=== PATIENT | male | born 1935 | race Caucasian/White ===

== ENCOUNTER 2020-06-18 17:59 | Observation (INO) ==
--- OUTSIDE RECORDS SUMMARY | 2020-06-18 18:02 | External Medical Summary | Continuity of Care Document ---
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
--- NOTE | 2020-06-18 19:11 | Emergency Department Note ---
Impression & Plan Hemianopsia, Occipital cerebral infarction, Cerebellar infarct ED Provider Note NAME: JUAN DIEGO HOFFMAN AGE: 84 SEX: M : 1935 ARRIVES VIA: Walk-In INFORMANT: Patient, ED PROVIDER(S): Rocco Shankar MD Chief Complaint: Vision change HPI: Patient does present with concern for vision changes. The patient states that this began about 2 weeks ago he did see a doctor annie who is an eye doctor in [place]. The patient was told to return in 2 weeks time. The patient did not have improvement in symptoms and the patient did relate was referred here after being seen by the eye doctor around 2:15 PM. Patient denies any headache fevers or chills. 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 Patient denies any numbness tingling weakness. The patient denies any double vision but relates that the vision is primarily what he thought was at the right eye and the periphery on the right side and noticed some changes in color and that images almost had a "glazed" appearance. Patient denies any curtain coming down or double vision. Patient denies any slurred speech or confusion. Patient denies any recent falls. Patient denies any prior history of stroke. The patient did have a dilated eye exam completed today. Patient denies any eye pain. ROS: See HPI for pertinent positives and negatives. A total of 10 systems were reviewed and otherwise negative. Past medical history: See below Surgical history: See below Social history: See below Physical Exam: GENERAL: Well appearing, well nourished, NAD, non-toxic. EYE EXAM: Normal conjunctiva. PERRL, no anisocoria and EOM's grossly intact w/o pain. Patient does have slightly right greater than left anisocoria but with consensual light reflex. No APD. No obvious hyphema or hypopyon. Patient does have decreased vision of the right and left eye when looking straight ahead at his 4 o'clock position bilaterally. No proptosis or subconjunctival hemorrhage. NECK: Supple, no nuchal rigidity, no adenopathy, non-tender. No signs of meningismus. LUNGS: Clear to auscultation. Normal chest wall mechanics. HEART: NSR, no MRG. ABDOMEN: Abdomen soft, non-tender, normo-active bowel sounds, no masses, no rebound or guarding. BACK: No CVA TTP. SKIN: No rashes and no bruising. UPPER EXTREMITIES: Upper extremities are grossly normal. LOWER EXTREMITIES: Grossly normal, no edema. NEURO EXAM: A&O x3, cranial nerves II-XII grossly intact, normal speech, moves all 4 extremities on command w/o issue. Good finger to nose, no drift, no sensory deficits. Differential diagnoses: Infection, dehydration, metabolic abnormality, hypo/hyperglycemia, electrolyte disturbance, anemia, hypoxia, cardiac sources, intracerebral event, toxicologic, neurologic, as well as other pathologies. Course: Patient was seen and evaluated the bedside. Full history physical exam was performed. EKG: Indication: Vision changes Normal sinus rhythm, rate of 61, normal intervals, normal axis, T wave inversion in 2 and 3, no ST changes. No significant changes from comparison EKG December 06, 2012 for Imaging Studies: Radiology results as stated below per my review in the radiologist's interpretation: UNENHANCED CT OF THE BRAIN; CT ANGIOGRAM OF THE BRAIN; CT ANGIOGRAM OF THE NECK CLINICAL HISTORY: Peripheral vision loss. COMPARISON STUDY: No priors. TECHNIQUE: Unenhanced axial CT scan of the brain is performed. Subsequently, following the IV administration of 115 of Optiray 320, CT angiogram of the head and neck was performed from the aortic arch to the vertex. Images are reviewed in the axial, sagittal, and coronal planes. 3-D MIPS images are created and assessed. IV contrast was administered without complication. All measurements were calculated based on NASCET criteria. A dose lowering technique was utilized adhering to the principles of ALARA. CT DOSE: 1073.51 mGy.cm FINDINGS: Brain parenchyma: There is age-related involutional change noting mild subc ortical and periventricular microangiopathic disease. There is no hemorrhage, mass effect, or evidence of acute territorial ischemia by CT criteria. A chronic appearing lacunar infarct is noted in the left cerebellar hemisphere. There is no evidence of enhancing mass lesion on the angiogram phase images. The ventricles, sulci, and cisterns are prominent secondary to involutional change. Pagan-white matter differentiation is preserved. No extra-axial fluid collection is seen. Mineralization is noted in the basal ganglia. Thoracic aorta: Visualized portions of the thoracic aorta are normal in caliber. The aortic arch demonstrates standard 3-vessel anatomy. Right carotid arterial system: The right common carotid artery is widely patent, as are the right internal and external carotid arteries. Left carotid arterial system: The left common carotid artery is widely patent, as are the left internal and external carotid arteries. Mild plaque is seen in the carotid bulb. Vertebral arteries: The vertebral arteries are widely patent and codominant. Subclavian arteries: Widely patent bilaterally. Intracranial vasculature: There is atherosclerotic calcification of the cavernous carotid and vertebral arteries. The internal carotid arteries are patent at the skull base, as are the anterior and middle cerebral arteries bilaterally. The right A1 segment is atretic. The vertebrobasilar system and posterior cerebral arteries are widely patent. The vertebral arteries are codominant. There is no aneurysm, high-grade stenosis, or focal vessel cut off seen throughout the intracranial circulation. Jugular veins: Patent bilaterally. Dural sinuses: Patent. Lung apices: Partially visualized upper lobe lung parenchyma appears clear. Soft tissues: The visualized pharyngeal soft tissues are normal in appearance noting angiographic phase technique. The oropharyngeal airway appears widely p atent. The salivary and thyroid glands are normal in appearance. No cervical lymphadenopathy is seen. Skeletal structures: The skeletal structures are osteopenic. The calvarium appears intact. The cervical spine is maintained noting advanced multilevel spondylosis. No lytic or blastic lesion is seen. Orbits: The bony orbits are intact. Orbital contents are normal as imaged noting bilateral ocular lens implants. Sinuses and mastoids: Moderate mucosal thickening is similar left maxillary antrum. Mild mucosal thickening is seen on the right. Moderate mucosal thickening is seen within the ethmoid sinuses. Mild mucosal thickening is noted in the frontal and sphenoid sinuses. The mastoid air cells are well pneumatized. IMPRESSION: 1. There is no hemorrhage, mass effect, or evidence of acute territorial ischemia by CT criteria. 2. A chronic appearing lacunar infarct is noted in the left cerebellar hemisphere. 3. Unremarkable CT angiogram of the brain. 4. Unremarkable CT angiogram of the neck. 5. Paranasal sinus disease as above. ACT 112: Negative or not required by law. Electronically signed by: Sergio Anderson M.D. 06/18/2020 9:12 PM Dictated: 06/18/202099 Transcribed: 06/18/202099 MRI brain without contrast: Impression: No evidence of acute infarction. 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 Chronic microvascular changes. No mass lesion mass-effect or hydrocephalus. Cardiac monitoring: An order was placed for continuous cardiac monitoring. The monitor shows a rate of 66 with sinus rhythm. MDM: Patient does present with concern for changes in vision. Patient bloodwork completed which shows a normal white count H&H and platelet count. Patient's kidney function CKD stage III. Troponin is nondetectable. EKG is unremarkable. CT of the head and CT angiography's of the head and neck do show chronic infarct. Patient did have an MRI of the brain ordered was ordered a full dose aspirin I did speak with the on-call hospitalist Dr. Winters and the patient was admitted to the medicine service. Patient's MRI of the brain did not show any evidence of acute infarction but chronic left occipital and superior cerebellar infarctions. Patient was never a TPA candidate given that he had 2 weeks of symptoms. Past Med/Surg History Medical History Colon cancer H/O: HTN (hypertension) Prostate cancer Family History Other No pertinent family history Social History Smoking Status: Never smoker Hx Alcohol Use: Yes Hx Substance Use: No Allergies Allergies Allergy/AdvReac Type Severity Reaction Status Date / Time No Known Allergies Allergy Unknown Verified 06/18/20 22:53 Home Meds Home Medications Medication Instructions Recorded Confirmed amlodipine 2.5 mg PO DAILY 06/18/20 06/18/20 Results & Data (ED) Vital Signs Vital Signs - 24 hr 06/18/20 18:06 06/18/20 19:36 06/18/20 20:55 Temperature 36.6 C Temperature Source Oral Pulse Rate 66 Pulse Rate [Left] 59 L 64 Respiratory Rate 18 20 18 Respiratory Effort / Characteristics Non-Labored Spontaneous Non-Labored Spontaneous Respiratory Depth Normal Normal Blood Pressure 151/41 H Blood Pressure [Left Arm] 151/71 H 159/68 H Blood Pressure Mean 77 Blood Pressure Mean [Left Arm] 97 98 Blood Pressure Position [Left Arm] Lying Pulse Oximetry 97 97 98 Oxygen Delivery Method Room Air Room Air Room Air Sepsis Recent Fever Within 48 Hours No Sepsis New/Unexplained Change in Mental Status No Sepsis Action Taken by Nursing No Action Required 11/23/20 21:43 Temperature Temperature Source Pulse Rate Pulse Rate [Left] 85 Respiratory Rate 18 Respiratory Effort / Characteristics Respiratory Depth Blood Pressure Blood Pressure [Left Arm] 129/89 Blood Pressure Mean Blood Pressure Mean [Left Arm] 102 Blood Pressure Position [Left Arm] Pulse Oximetry 97 Oxygen Delivery Method Sepsis Recent Fever Within 48 Hours Sepsis New/Unexplained Change in Mental Status Sepsis Action Taken by Usp Medications Current Medication List: was personally reviewed by me Laboratory Data Attestation: I reviewed the patient's lab results. Result diagrams: 06/18/20 19:40 06/18/20 19:40 Lab Results 06/18/20 06/18/20 06/18/20 Range/Units 19:40 19:40 19:40 WBC 10.30 (4.8-10.8) K/uL RBC 4.67 L (4.7-6.1) M/uL Hgb 15.1 (14.0-18.0) g/dL Hct 46.0 (42-52) % MCV 98.5 (80-100) fL MCH 32.3 (25-34) pg MCHC 32.8 (32-36) g/dL RDW Std Deviation 52.7 H (36.4-46.3) fL RDW Coeff of Rolan 14.7 H (11.5-14.5) % Plt Count 313 (130-400) K/uL MPV 10.8 H (7.4-10.4) fL Immature Gran % (Auto) 0.1 % Neut % (Auto) 69.8 % Lymph % (Auto) 19.2 % Beckham % (Auto) 7.4 % Eos % (Auto) 3.2 % Baso % (Auto) 0.3 % Neut # (Auto) 7.19 H (1.4-6.5) K/uL Lymph # (Auto) 1.98 (1.2-3.4) K/uL Beckham # (Auto) 0.76 H (0.11-0.59) K/uL Eos # (Auto) 0.33 (0-0.5) K/uL Baso # (Auto) 0.03 (0-0.2) K/uL Immature Gran # (Auto) 0.01 (0.00-0.02) K/uL PT 10.7 (9.0-12.0) Seconds INR 1.0 (0.9-1.1) APTT 24.1 (21.0-31.0) Seconds PTT Ratio 0.9 Sodium 141 (136-145) mmol/L Potassium 4.5 (3.5-5.1) mmol/L Chloride 110 H (98-107) mmol/L Carbon Dioxide 26 (21-32) mmol/L Anion Gap 5.0 (3-11) BUN 22 H (7-18) mg/dl Creatinine 1.43 H (0.6-1.4) mg/dl Est Cr Clr Drug Dosing 39.2 ml/min Est GFR ( Amer) 52.5 Est GFR (Non-Af Amer) 45.3 BUN/Creatinine Ratio 15.2 (10-20) Glucose 97 (70-99) mg/dl Calcium 9.4 (8.5-10.1) mg/dl Magnesium 2.1 (1.8-2.4) mg/dl Total Bilirubin 0.3 (0.2-1) mg/dl AST 20 (15-37) U/L ALT 23 (12-78) U/L Alkaline Phosphatase 107 (45-117) U/L Troponin I < 0.015 (0-0.045) ng/ml Total Protein 7.7 (6.4-8.2) gm/dl Albumin 3.4 (3.4-5.0) gm/dl Globulin 4.3 H (2.5-4.0) gm/dl Albumin/Globulin Ratio 0.8 L (0.9-2) TSH 2.840 (0.300-4.500) uIu/ml Administered Medications Discontinued Medications Aspirin (Aspirin Chew 324 Mg) 324 mg PO NOW STA Stop: 06/18/20 21:18 Last Admin: 06/18/20 21:43 Dose: 324 mg Documented by: [id number] Ioversol (Optiray 320 125ml) 115 ml IV ONCE ONE Stop: 06/18/20 20:49 Last Admin: 06/18/20 20:48 Dose: 115 ml Documented by: [id number] Discharge Plan Visit Data Chief Complaint: Visual Disturbance Stated Complaint: HEADACHE, CANT SEE ED Provider: Rocco Shankar Discharge Problem: Hemianopsia, Occipital cerebral infarction, Cerebellar infarct Forms Stand Alone Forms: My [facility] [employer] Prescriptions Prescriptions: No Action amlodipine 2.5 mg tablet 2.5 mg PO DAILY RF: 0
[2020-06-18 19:54] LABS: Basophils # (auto) 0.03 K/uL (0-0.2); Basophils % (auto) 0.3 %; Eosinophils # (auto) 0.33 K/uL (0-0.5); Eosinophils % (auto) 3.2 %; Hemoglobin 15.1 g/dL (14.0-18.0); Immature Granulocytes # (auto) 0.01 K/uL (0.00-0.02); Immature Granulocytes % (auto) 0.1 %; Lymphocytes # (auto) 1.98 K/uL (1.2-3.4); Lymphocytes % (auto) 19.2 %; Mean Corpuscular Hemoglobin 32.3 pg (25-34); Mean Corpuscular Hgb Conc 32.8 g/dL (32-36); Mean Corpuscular Volume 98.5 fL (80-100); Mean Platelet Volume 10.8 fL (7.4-10.4); Monocytes # (auto) 0.76 K/uL (0.11-0.59); Monocytes % (auto) 7.4 %; Neutrophils # (auto) 7.19 K/uL (1.4-6.5); Neutrophils % (auto) 69.8 %; Platelet Count 313 K/uL (130-400); RDW Coefficient of Variation 14.7 % (11.5-14.5); RDW Standard Deviation 52.7 fL (36.4-46.3); Red Blood Count 4.67 M/uL (4.7-6.1)
[2020-06-18 20:05] LABS: Partial Thromboplastin Ratio 0.9; Partial Thromboplastin Time 24.1 Seconds (21.0-31.0); Prothrombin Time 10.7 Seconds (9.0-12.0)
[2020-06-18 20:10] LABS: Alanine Aminotransferase 23 U/L (12-78); Albumin Level 3.4 gm/dl (3.4-5.0); Aspartate Aminotransferase 20 U/L (15-37); BUN Creatinine Ratio 15.2 (10-20); Blood Urea Nitrogen 22 mg/dl (7-18); Calcium 9.4 mg/dl (8.5-10.1); Carbon Dioxide 26 mmol/L (21-32); Chloride 110 mmol/L (98-107); Creatinine Clr Calc Pharmacy 39.2 ml/min; Est GFR (African American) 52.5; Est GFR (Non-African American) 45.3; Glucose 97 mg/dl (70-99); Magnesium 2.1 mg/dl (1.8-2.4); Potassium 4.5 mmol/L (3.5-5.1); Sodium 141 mmol/L (136-145)
[2020-06-18 20:15] LABS: Albumin Globulin Ratio 0.8 (0.9-2); Alkaline Phosphatase 107 U/L (45-117); Bilirubin,Total 0.3 mg/dl (0.2-1); Globulin 4.3 gm/dl (2.5-4.0); Total Protein 7.7 gm/dl (6.4-8.2); Troponin I < 0.015 ng/ml (0-0.045)
[2020-06-18] MEDS ORDERED: OPTIRAY 320 125ml IV ONE (20:48)
--- NOTE | 2020-06-18 21:13 | CT Scan Report ---
UNENHANCED CT OF THE BRAIN; CT ANGIOGRAM OF THE BRAIN; CT ANGIOGRAM OF THE NECK CLINICAL HISTORY: Peripheral vision loss. COMPARISON STUDY: No priors. TECHNIQUE: Unenhanced axial CT scan of the brain is performed. Subsequently, following the IV adminis tration of 115 of Optiray 320, CT angiogram of the head and neck was performed from the aortic arch t o the vertex. Images are reviewed in the axial, sagittal, and coronal planes. 3-D MIPS images are cre ated and assessed. IV contrast was administered without complication. All measurements were calculate d based on NASCET criteria. A dose lowering technique was utilized adhering to the principles of ALA RA. CT DOSE: 1073.51 mGy.cm FINDINGS: Brain parenchyma: There is age-related involutional change noting mild subcortical and periventricula r microangiopathic disease. There is no hemorrhage, mass effect, or evidence of acute territorial isc hemia by CT criteria. A chronic appearing lacunar infarct is noted in the left cerebellar hemisphere. There is no evidence of enhancing mass lesion on the angiogram phase images. The ventricles, sulci, and cisterns are prominent secondary to involutional change. Pagan-white matter differentiation is pre served. No extra-axial fluid collection is seen. Mineralization is noted in the basal ganglia. Thoracic aorta: Visualized portions of the thoracic aorta are normal in caliber. The aortic arch demo nstrates standard 3-vessel anatomy. Right carotid arterial system: The right common carotid artery is widely patent, as are the right int ernal and external carotid arteries. Left carotid arterial system: The left common carotid artery is widely patent, as are the left international accountant al and external carotid arteries. Mild plaque is seen in the carotid bulb. Vertebral arteries: The vertebral arteries are widely patent and codominant. Subclavian arteries: Widely patent bilaterally. Intracranial vasculature: There is atherosclerotic calcification of the cavernous carotid and vertebr al arteries. The internal carotid arteries are patent at the skull base, as are the anterior and midd le cerebral arteries bilaterally. The right A1 segment is atretic. The vertebrobasilar system and pos terior cerebral arteries are widely patent. The vertebral arteries are codominant. There is no aneury sm, high-grade stenosis, or focal vessel cut off seen throughout the intracranial circulation. Jugular veins: Patent bilaterally. Dural sinuses: Patent. Lung apices: Partially visualized upper lobe lung parenchyma appears clear. Soft tissues: The visualized pharyngeal soft tissues are normal in appearance noting angiographic pha se technique. The oropharyngeal airway appears widely patent. The salivary and thyroid glands are nor mal in appearance. No cervical lymphadenopathy is seen. Skeletal structures: The skeletal structures are osteopenic. The calvarium appears intact. The cervic al spine is maintained noting advanced multilevel spondylosis. No lytic or blastic lesion is seen. Orbits: The bony orbits are intact. Orbital contents are normal as imaged noting bilateral ocular michael s implants. Sinuses and mastoids: Moderate mucosal thickening is similar left maxillary antrum. Mild mucosal thic kening is seen on the right. Moderate mucosal thickening is seen within the ethmoid sinuses. Mild muc osal thickening is noted in the frontal and sphenoid sinuses. The mastoid air cells are well pneumati zed. IMPRESSION: 1. There is no hemorrhage, mass effect, or evidence of acute territorial ischemia by CT criteria. 2. A chronic appearing lacunar infarct is noted in the left cerebellar hemisphere. 3. Unremarkable CT angiogram of the brain. 4. Unremarkable CT angiogram of the neck. 5. Paranasal sinus disease as above. ACT 112: Negative or not required by law. Electronically signed by: Sergio Anderson M.D. 06/18/2020 9:12 PM
[2020-06-18] MEDS ORDERED: ASPIRIN CHEW 324 MG PO STA (21:17)
--- NOTE | 2020-06-18 23:14 | History & Physical Report ---
Date of Service June 18, 2020 Assessment & Plan (1) Hemianopsia: Visual disturbance Old CVA on CAT scan Rule out recurrent CVA, subacute symptoms given occurrence from 2 weeks ago Hypertension, slightly elevated Hyperlipidemia as per records, currently not on statin Rx colon cancer status post surgery/chemoradiation prostate cancer status post surgery/hormonal therapy CRI, creatinine at baseline hx peripheral neuropathy attributed to prior chemotherapy medication past tobacco abuse OBS Neurochecks Aspirin, statin for secondary CVA prevention MRI brain TTE, update lipid profile for stroke work-up Retrieve recent outpatient [facility] records. Neurology consult RE visual disturbance, possible CVA DVT prophylaxis. Heparin subcu DNR Text document was generated using [employer] voice recognition software. It may contain grammatical or spelling errors. Kindly contact undersigned for clarification of any documentation item in question. History of Present Illness Chief Complaint: Sent by eye doctor Primary Care Provider: Dafne Hernandez DO History obtained from patient and records. Medical history significant for HTN, PAD as per records, hyperlipidemia as per records, colon cancer status post surgery/chemoradiation, prostate cancer status post surgery/hormonal therapy, CRI (baseline creatinine 1.4), peripheral neuropathy as per records, past tobacco abuse. Last confinement 2012 under Orthopedics service for left hand surgery. 2 weeks ago, patient noted visual disturbance on his right eye with transient tolerable headache symptoms. Patient seen glazed images. No recent head/neck trauma. No arm and leg weakness, no slurred speech. No chest pain, no S OB. Patient saw an detective private eye from [facility] in [place]. Diagnosis unknown to patient but patient was asked to return after 2 weeks. Persistent visual disturbance without headache symptoms on follow-up at [facility] today. On examination, patient was told he had trouble seeing on sides of both eyes. Patient sent to the ER for evaluation of possible stroke. Aspirin given at the ER for possible CVA. Medical History as above Surgical History : Knee surgery, transanal resection surgery, vascular procedure, urologic procedure Family History : Diabetes Personal/Social history : Past tobacco abuse, occasional EtOH intake, retired cigar factory employee Allergies Allergy/AdvReac Type Severity Reaction Status Date / Time No Known Allergies Allergy Unknown Verified 06/18/20 22:53 Home Medications Medication Instructions Recorded Confirmed Type amlodipine 2.5 mg PO DAILY 06/18/20 06/18/20 History Past Med/Surg History Medical History Colon cancer H/O: HTN (hypertension) Prostate cancer Family History Other No pertinent family history Social History Smoking Status: Former smoker Second Hand Exposure: No; Do You Dip or Chew Tobacco: No; Tobacco Cessation Education Requested by Patient: No Hx Alcohol Use: Yes Alcohol type: beer Hx Substance Use: No Preferred Language: Kazakh Beliefs That Will Affect Care: None Current Living Situation: Alone Other Information That Helps Us Care for You: No Feels Safe at Home: Yes Safety Concerns: Feels Safe At This Time Assistive Devices: Cane and Glasses Review of Systems Review of Systems: As per HPI, all 10 systems reviewed, all other ROS negative Physical Exam Physical Exam: GENERAL: Comfortable, pleasant, looks younger than stated age, no respiratory distress SKIN: Normal color, warm HEENT: [place] palpebral conjunctivae, no ptosis, dry buccal mucosa NECK : Supple, no tenderness CHEST : CTA, no tenderness HEART : Bradycardic, no obvious murmurs ABDOMEN: Some distention, nontender EXTREMITIES : No LE swelling/tenderness, no other conspicuous deformities noted NEUROLOGIC : Coherent, some difficulty with counting fingers on [facility] testing of the right eye, no facial asymmetry, no other gross focality Results & Data Results & Data ([facility]) Vital Signs (Past 12 Hours) Vital Signs Temp Pulse Pulse Resp BP BP Pulse Ox 06/18/20 21:43 85 18 129/89 97 06/18/20 20:55 64 18 159/68 H 98 06/18/20 19:36 59 L 20 151/71 H 97 06/18/20 18:06 36.6 C 66 18 151/41 H 97 Laboratory Results Laboratory Results WBC 10.30 K/uL (4.8-10.8) 06/18/20 19:40 RBC 4.67 M/uL (4.7-6.1) L 06/18/20 19:40 Hgb 15.1 g/dL (14.0-18.0) 06/18/20 19:40 Hct 46.0 % (42-52) 06/18/20 19:40 MCV 98.5 fL (80-100) 06/18/20 19:40 MCH 32.3 pg (25-34) 06/18/20 19:40 MCHC 32.8 g/dL (32-36) 06/18/20 19:40 RDW Std Deviation 52.7 fL (36.4-46.3) H 06/18/20 19:40 RDW Coeff of Rolan 14.7 % (11.5-14.5) H 06/18/20 19:40 Plt Count 313 K/uL (130-400) 06/18/20 19:40 MPV 10.8 fL (7.4-10.4) H 06/18/20 19:40 Immature Gran % (Auto) 0.1 % 06/18/20 19:40 Neut % (Auto) 69.8 % 06/18/20 19:40 Lymph % (Auto) 19.2 % 06/18/20 19:40 [place] % (Auto) 7.4 % 06/18/20 19:40 Eos % (Auto) 3.2 % 06/18/20 19:40 Baso % (Auto) 0.3 % 06/18/20 19:40 Neut # (Auto) 7.19 K/uL (1.4-6.5) H 06/18/20 19:40 Lymph # (Auto) 1.98 K/uL (1.2-3.4) 06/18/20 19:40 [place] # (Auto) 0.76 K/uL (0.11-0.59) H 06/18/20 19:40 Eos # (Auto) 0.33 K/uL (0-0.5) 06/18/20 19:40 Baso # (Auto) 0.03 K/uL (0-0.2) 06/18/20 19:40 Immature Gran # (Auto) 0.01 K/uL (0.00-0.02) 06/18/20 19:40 PT 10.7 Seconds (9.0-12.0) 06/18/20 19:40 INR 1.0 (0.9-1.1) 06/18/20 19:40 APTT 24.1 Seconds (21.0-31.0) 06/18/20 19:40 PTT Ratio 0.9 06/18/20 19:40 Sodium 141 mmol/L (136-145) 06/18/20 19:40 Potassium 4.5 mmol/L (3.5-5.1) 06/18/20 19:40 Chloride 110 mmol/L (98-107) H 06/18/20 19:40 Carbon Dioxide 26 mmol/L (21-32) 06/18/20 19:40 Anion Gap 5.0 (3-11) 06/18/20 19:40 BUN 22 mg/dl (7-18) H 06/18/20 19:40 Creatinine 1.43 mg/dl (0.6-1.4) H 06/18/20 19:40 Est Cr Clr Drug Dosing 39.2 ml/min 06/18/20 19:40 Est GFR ( Amer) 52.5 06/18/20 19:40 Est GFR (Non-Af Amer) 45.3 06/18/20 19:40 BUN/Creatinine Ratio 15.2 (10-20) 06/18/20 19:40 Glucose 97 mg/dl (70-99) 06/18/20 19:40 Calcium 9.4 mg/dl (8.5-10.1) 06/18/20 19:40 Magnesium 2.1 mg/dl (1.8-2.4) 06/18/20 19:40 Total Bilirubin 0.3 mg/dl (0.2-1) 06/18/20 19:40 AST 20 U/L (15-37) 06/18/20 19:40 ALT 23 U/L (12-78) 06/18/20 19:40 Alkaline Phosphatase 107 U/L (45-117) 06/18/20 19:40 Troponin I < 0.015 ng/ml (0-0.045) 06/18/20 19:40 Total Protein 7.7 gm/dl (6.4-8.2) 06/18/20 19:40 Albumin 3.4 gm/dl (3.4-5.0) 06/18/20 19:40 Globulin 4.3 gm/dl (2.5-4.0) H 06/18/20 19:40 Albumin/Globulin Ratio 0.8 (0.9-2) L 06/18/20 19:40 TSH 2.840 uIu/ml (0.300-4.500) 06/18/20 19:[address] head: 1. There is no hemorrhage, mass effect, or evidence of acute territorial ischemia by CT criteria. 2. A chronic appearing lacunar infarct is noted in the left cerebellar hemisphere. 3. Unremarkable CT angiogram of the brain. 4. Unremarkable CT angiogram of the neck. 5. Paranasal sinus disease as above. CT angio head and neck: 1. There is no hemorrhage, mass effect, or evidence of acute territorial ischemia by CT criteria. 2. A chronic appearing lacunar infarct is noted in the left cerebellar hemisphere. 3. Unremarkable CT angiogram of the brain. 4. Unremarkable CT angiogram of the neck. 5. Paranasal sinus disease as above. EKG as per my interpretation: Rate 60, LAD, LAFB, T wave flattening anterolateral leads
[2020-06-18] MEDS ORDERED: SODIUM CHLORIDE 0.45 % 1,000 ML IV STA (23:31)
[2020-06-19] MEDS ORDERED: traMADol HCL 50 MG TABLET PO PRN (02:27)
[2020-06-19] MEDS ORDERED: HYDROmorphone INJ 0.5 MG/0.5 ML SYR IV PRN (02:27)
[2020-06-19] MEDS ORDERED: PROMETHAZINE HCL 6.25 MG in SODIUM CHLORIDE 0.9% 50 ML IV PRN (02:27)
[2020-06-19] MEDS ORDERED: ACETAMINOPHEN 325 MG TAB PO PRN (02:27)
[2020-06-19] MEDS: HEPARIN SOD 5,000 UNIT/0.5 ML VIAL SQ SCH ×3 (06:32→20:55)
--- NOTE | 2020-06-19 07:07 | Magnetic Resonance Report ---
MRI OF THE BRAIN WITHOUT CONTRAST CLINICAL HISTORY: b/l R sided hemaniopsia VISUAL DISTURBANCES. PERIPHERAL VISUAL FIELD LOSS. COMPARISON STUDY: Noncontrast head CT dated 06/18/2020 FINDINGS: Sagittal T1, axial diffusion, proton density and T2 weighted axial, coronal FLAIR, and axial T1-weigh aditya images were acquired. No intra or extra-axial mass lesions are visualized Axial diffusion-weighted images reveal no evidence of acute or subacute infarction. There is no evidence of ventricular dilatation. 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 There are scattered foci of increased T2 and FLAIR signal within the white matter, likely on a small vessel ischemic basis. There are no abnormal flow voids. There is paranasal sinus mucosal thickening. There is a cystic lesion within the right nasopharynx. IMPRESSION: 1. No evidence of intracranial mass 2. No evidence of acute or subacute infarction 3. Evidence for areas of chronic infarction involving the left occipital lobe and left superior cereb ellar hemisphere 4. 1 cm cystic lesion within the right nasopharynx ACT 112: Negative or not required by law. Electronically signed by: Dean Jiménez M.D. 06/19/2020 7:06 AM
--- NOTE | 2020-06-19 07:30 | Hospitalist Progress Note ---
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 No evidence of intracranial mass 2. No evidence of acute or subacute infarction 3. Evidence for areas of chronic infarction involving the left occipital lobe and left superior cerebellar hemisphere 4. 1 cm cystic lesion within the right nasopharynx -transthoracic echocardiogram 60-65% no Atrial Septal Defect noted -pt evaluated by ophthalmology for peripheral vision loss, sent to ED for concern of CVA -pt started on ASA and statin on admission -fasting LDL ordered -discussed in detail that pt can not drive - pt is aware -neurology evaluation pending Admission and Anticipated Discharge Date Admission Date: June 18, 2020 Subjective Pt seen in follow up of visual disturbance, possible stroke. Pt is laying in bed in NAD. Reports he has been ambulating w/o difficulty. No difficulty w/ speech. Reports visual difficulties - peripheral vision. He is aware he can not drive. No fever, chills, chest pain, no weakness. Review of Systems Review of Systems: All systems reviewed & are unremarkable except as noted in HPI & below Constitutional: no fever and no chills Respiratory: no cough and no dyspnea Cardiovascular: no chest pain and no palpitations Gastrointestinal: no abdominal pain, no nausea and no vomiting Physical Exam Physical Exam: GENERAL: elderly male laying in bed, comfortable, in NAD SKIN: Normal color, warm HEENT: [place], [place] palpebral conjunctivae, no ptosis NECK : Supple, no tenderness CHEST : CTA, no tenderness, no wheezing, rhonchi, crackles HEART : RRR, no obvious murmurs ABDOMEN: + bowel sounds, some distention, nontender, soft, obese EXTREMITIES : No LE swelling/tenderness, NEUROLOGIC : alert and oriented x3, no facial asymmetry, speech fluent, peripheral vision deficit noted, moves extremities, no sign. weakness noted Results & Data Results [facility] ([facility]) Vital Signs (Past 12 Hours) Vital Signs Temp Pulse Pulse Resp BP Pulse Ox 06/19/20 03:06 56 L 06/19/20 02:47 36.5 C 96 H 18 165/73 H 96 06/19/20 02:04 49 L 16 140/67 94 06/19/20 01:18 52 L 21 93/77 L 95 06/18/20 23:40 58 L 18 128/76 95 06/18/20 21:43 85 18 129/89 97 06/18/20 20:55 64 18 159/68 H 98 06/18/20 19:36 59 L 20 151/71 H 97
[2020-06-19 08:32] LABS: Basophils # (auto) 0.04 K/uL (0-0.2); Basophils % (auto) 0.4 %; Eosinophils # (auto) 0.49 K/uL (0-0.5); Hematocrit (blood only) 45.4 % (42-52); Hemoglobin 14.9 g/dL (14.0-18.0); Immature Granulocytes # (auto) 0.01 K/uL (0.00-0.02); Immature Granulocytes % (auto) 0.1 %; Lymphocytes % (auto) 23.6 %; Mean Corpuscular Hemoglobin 32.5 pg (25-34); Mean Corpuscular Hgb Conc 32.8 g/dL (32-36); Mean Corpuscular Volume 99.1 fL (80-100); Mean Platelet Volume 11.1 fL (7.4-10.4); Monocytes # (auto) 0.75 K/uL (0.11-0.59); Monocytes % (auto) 7.7 %; Neutrophils # (auto) 6.16 K/uL (1.4-6.5); Neutrophils % (auto) 63.2 %; Platelet Count 312 K/uL (130-400); RDW Coefficient of Variation 14.6 % (11.5-14.5); RDW Standard Deviation 53.2 fL (36.4-46.3); Red Blood Count 4.58 M/uL (4.7-6.1); White Blood Count 9.75 K/uL (4.8-10.8)
[2020-06-19] MEDS ORDERED: ASPIRIN 81 MG ECTAB PO SCH (09:00)
[2020-06-19 09:09] LABS: BUN Creatinine Ratio 13.9 (10-20); C Reactive Protein 0.36 mg/dl (0-0.29); Calcium 9.5 mg/dl (8.5-10.1); Creatinine Clr Calc Pharmacy 39.8 ml/min; Est GFR (African American) 59.4; Est GFR (Non-African American) 51.3; Potassium 4.2 mmol/L (3.5-5.1)
[2020-06-19] MEDS: ATORVASTATIN 40 MG TAB PO SCH (09:13)
[2020-06-19] MEDS: ASPIRIN 81 MG ECTAB PO SCH (09:13)
[2020-06-19 14:36] LABS: Lyme Ab IgG w/WB Rflx Negative (Negative); Lyme Ab IgM w/WB Rflx Negative (Negative)
--- NOTE | 2020-06-19 17:34 | Neurology Consultation ---
Date of Consultation June 19, 2020 Assessment & Plan (1) Occipital cerebral infarction: 1. MRI brain left occipital lobe infact 2. CTA head/neck unremarkable 3. optimize HTN, HLD, DM LDL <70 4. aspirin 81 mg daily 5. ZIO as outpatient 6. follow with ophthalmology as scheduled 7. no driving due to loss of vision in periphery 8. PT/OT speech for discharge needs 9. follow up with neurology 4-6 weeks Juliann RODRIGUEZ (2) Cerebellar infarct: (3) Hemianopsia: Supervising Physician Co-Signing Physician Notes I have seen and discussed above patient with Dr Juliann Lugo, neurology. pt seen and examined. visual loss 2 months ago with me fluctuaction.Minimal headache. Abnl field found doay of admission cw with old infarct. No high grade vascular stensosi or cardiac source. Rec asa and zio monitor as outpt r/o afib. Statn with goal LDL 70 or less. Will sign off. MALLY Lugo, History of Present Illness Reason for Consultation: visual disturbance Requesting Physician: Martín Arevalo MD Attending Physician: Martín Arevalo MD History of Present Illness Norris is a 84 year old male with a PMH HTN, PAD, HLD, colon cancer s/p surgery chemo radiation, prostrate CA post surgery hormonal therapy, CKD III, peripheral neuropathy, previous tobacco abuse. About 2 months ago he started having some "floaters" that were obscuring his vision but would come and go. then about 2 weeks ago he had difficulty with his right eye and some transient headaches. He saw [facility] in [place] and his eye doctor told him he shouldn't drive because he lost vision in the periphery bilaterally but he is only noticing it on the right. He was asked to return in 2 weeks and that is when the eye doctor told him there was vision loss both right and left peripheral vision. His daughter is a retired nurse and decided to bring him to the ED. He states he has been walking to the bathroom and is not having any other issues other than the right sided vision loss. he was not on aspirin prior to this event. denies headache, CP, SOB, abdominal pain, one sided weakness, numbness tingling, N V. Allergies Allergy/AdvReac Type Severity Reaction Status Date / Time No Known Allergies Allergy Unknown Verified 06/18/20 22:53 Home Medications Medication Instructions Recorded Confirmed Type amlodipine 2.5 mg PO DAILY 06/18/20 06/18/20 History Patient History Medical History Colon cancer H/O: HTN (hypertension) Prostate cancer Family History Other No pertinent family history Social History Smoking Status: Former smoker Second Hand Exposure: No; Do You Dip or Chew Tobacco: No; Tobacco Cessation Education Requested by Patient: No Hx Alcohol Use: Yes Alcohol type: beer Hx Substance Use: No Preferred Language: [place] Islander Beliefs That Will Affect Care: None Current Living Situation: Alone Other Information That Helps Us Care for You: No Feels Safe at Home: Yes Safety Concerns: Feels Safe At This Time Assistive Devices: Cane and Glasses Physical Exam Physical Exam: Physical Exam: Constitutional: appearance over nourished, healthy and normal Ears, Nose, Mouth and Throat: mucous membranes moist, no injection and skin normal, eyes normal Cardiovascular: normal S-1 and S-2 and regular rate and rhythm Respiratory: course breath sounds Musculoskeletal: no peripheral edema and good distal pulses Skin: no stigmata of neurocutaneous disease noted and normal and intact Eyes: extraocular muscles intact (EOMI) and pupils equal, round and reactive to light (PERRL), right hemianopsia NEUROLOGIC EXAMINATION: Mental status: Alert and interactive Oriented to person, knows [facility], thumb, button, stethoscope Speech fluent with no evidence of aphasia Cranial Nerves smile and eye brow raise symmetric Reflexes: Deep tendon reflexes were symmetrical and graded 2/5. sensory: no sensory deficits, light cool touch Coordination: finger to nose no bi pass Gait/Stance: Posture normal lying in bed sits up easily without assistance Motor: Negative for pronator drift of out stretched arms with eyes closed. Strength: biceps triceps hand network engineer right 5/5, hand network engineer on left 4/5-(previous hand injury), hip flex plantar flex ext bilaterally 5/5 Results & Data ([facility]) Vital Signs (Past 12 Hours) Vital Signs Temp Pulse Pulse Resp BP Pulse Ox 06/19/20 16:51 58 L 06/19/20 15:47 36.5 C 57 L 19 124/76 96 06/19/20 11:39 36.4 C L 56 L 16 138/73 94 06/19/20 07:30 36.4 C L 53 L 16 149/74 H 97 06/19/20 07:00 58 L Laboratory Results Abnormal lab results 06/18/20 06/18/20 06/19/20 Range/Units 19:40 19:40 07:58 RBC 4.67 L 4.58 L (4.7-6.1) M/uL RDW Std Deviation 52.7 H 53.2 H (36.4-46.3) fL RDW Coeff of Rolan 14.7 H 14.6 H (11.5-14.5) % MPV 10.8 H 11.1 H (7.4-10.4) fL Neut # (Auto) 7.19 H (1.4-6.5) K/uL [place] # (Auto) 0.76 H 0.75 H (0.11-0.59) K/uL ESR (0-14) mm/hr Chloride 110 H (98-107) mmol/L BUN 22 H (7-18) mg/dl Creatinine 1.43 H (0.6-1.4) mg/dl C-Reactive Protein (0-0.29) mg/dl Globulin 4.3 H (2.5-4.0) gm/dl Albumin/Globulin Ratio 0.8 L (0.9-2) 06/19/20 06/19/20 Range/Units 07:58 07:58 RBC (4.7-6.1) M/uL RDW Std Deviation (36.4-46.3) fL RDW Coeff of Rolan (11.5-14.5) % MPV (7.4-10.4) fL Neut # (Auto) (1.4-6.5) K/uL [place] # (Auto) (0.11-0.59) K/uL ESR 35 H (0-14) mm/hr Chloride 111 H (98-107) mmol/L BUN (7-18) mg/dl Creatinine (0.6-1.4) mg/dl C-Reactive Protein 0.36 H (0-0.29) mg/dl Globulin (2.5-4.0) gm/dl Albumin/Globulin Ratio (0.9-2) Diagnostic Findings MRI brain-1. No evidence of intracranial mass No evidence of acute or subacute infarction Evidence for areas of chronic infarction involving the left occipital lobe and left superior cerebellar hemisphere 1 cm cystic lesion within the right nasopharynx CTA head/neck- unremarkable TTE 60-65% no ASD
--- NOTE | 2020-06-20 04:42 | Electrocardiogram Report ---
Test Reason : Blood Pressure : / mmHG Vent. Rate : 061 BPM Atrial Rate : 061 BPM P-R Int : 170 ms QRS Dur : 082 ms QT Int : 426 ms P-R-T Axes : 043 -23 -06 degrees QTc Int : 428 ms Normal sinus rhythm with sinus arrhythmia Nonspecific T wave abnormality When compared with ECG of 06-DEC-2012 14:23, No significant change was found Confirmed by Dc Abel ([id number]) on 06/20/2020 4:42:08 AM Referred By: REFERRED SELF Confirmed By:Dc Abel
[2020-06-20] MEDS: HEPARIN SOD 5,000 UNIT/0.5 ML VIAL SQ SCH (05:47)
[2020-06-20] MEDS ORDERED: ACETAMINOPHEN 325 MG TAB PO PRN (07:01)
--- NOTE | 2020-06-20 08:48 | Hospitalist Progress Note ---
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 No evidence of intracranial mass 2. No evidence of acute or subacute infarction 3. Evidence for areas of chronic infarction involving the left occipital lobe and left superior cerebellar hemisphere 4. 1 cm cystic lesion within the right nasopharynx -transthoracic echocardiogram 60-65% no Atrial Septal Defect noted -evaluated by neurology consult on 06/19/2020 "Norris is a 84 year old male with a PMH HTN, PAD, HLD, colon cancer s/p surgery chemo radiation, prostrate CA post surgery hormonal therapy, CKD III, peripheral neuropathy, previous tobacco abuse. About 2 months ago he started having some "floaters" that were obscuring his vision but would come and go. then about 2 weeks ago he had difficulty with his right eye and some transient headaches. He saw [facility] in [place] and his eye doctor told him he shouldn't drive because he lost vision in the periphery bilaterally but he is only noticing it on the right. He was asked to return in 2 weeks and that is when the eye doctor told him there was vision loss both right and left peripheral vision. His daughter is a retired nurse and decided to bring him to the ED. He states he has been walking to the bathroom and is not having any other issues other than the right sided vision loss. he was not on aspirin prior to this event. denies headache, CP, SOB, abdominal pain, one sided weakness, numbness tingling, N V." -hospitalist Dr. Ortiz spoke with neurology team and that likely the visual problem of right eye may have been from the chronic stroke -06/20/2020 exam Patient denies any headache or dizziness or motor deficits. He speaks clearly and does not have any slurred speech. Patient reports that he has been ambulating independently without any other and also denies any balance problems. Patient describes his right eye visual symptoms are more like floats. His eye movements tract normally. His pupils are equal and reactive to light. Patient breathes comfortably on room air. No acute shortness of breath when examined at rest. Patient denies acute pain. Patient denies other symptoms on review of systems -discharge on 06/20/2020 Discussed with patient and his daughter Nisreen Cassidy ([phone]) that patient should not be driving at this time as per neurology recommendations Patient should follow up with ophthalmology clinic Patient should follow up with primary care doctor. No acute telemetry events in the hospital and patient has been normal sinus rhythm - but neurology recommends that patient is recommended to be on ZIO patch as outpatient Patient should follow up with neurology clinic [address] , [place] [address] [address] [address]. Patient discharge medication of aspirin 81 mg daily and atorvastatin 40 mg daily. Patient to continue home dose amlodipine of 2.5 mg daily Admission and Anticipated Discharge Date Admission Date: June 18, 2020 Subjective Patient denies any headache or dizziness or motor deficits. He speaks clearly and does not have any slurred speech. Patient reports that he has been ambulating independently without any other and also denies any balance problems. Patient describes his right eye visual symptoms are more like floats. His eye movements tract normally. His pupils are equal and reactive to light. Patient breathes comfortably on room air. No acute shortness of breath when examined at rest. Patient denies acute pain. Patient denies other symptoms on review of systems Review of Systems Review of Systems: All systems reviewed & are unremarkable except as noted in Subjective Physical Exam Constitutional: WD/WN, vitals as above Eyes: PERRL, conjunctivae normal, anicteric sclerae EOM intact bilaterally ENMT: external ear and nose normal, oropharynx normal Neck: trachea midline, no thyromegaly Respiratory: normal respiratory effort, lungs clear to auscultation Cardiovascular: Rate/Rhythm: regular rate and regular rhythm Gastrointestinal (Abdomen): normal bowel sounds, soft, nontender, no hepatosplenomegaly Musculoskeletal: Head/Neck/Chest: normocephalic and head atraumatic Neurologic: PERRL, EOMI, accommodation nl, no face palsy, no dysarthria CN's II-XI intact bilaterally and moves all extremities Psychiatric: A+Ox3, euthymic affect Results & Data Results & Data ([facility]) Vital Signs (Past 12 Hours) Vital Signs Temp Pulse Pulse Resp BP Pulse Ox 06/20/20 07:31 36.4 C L 60 126/67 94 06/20/20 03:37 36.9 C 60 16 111/68 95 11/24/20 23:48 58 L 06/19/20 23:14 36.8 C 65 16 158/62 H 96
[2020-06-20] MEDS ORDERED: amLODIPine BESYLATE 5 MG TAB PO SCH (09:00)
[2020-06-20] MEDS: ASPIRIN 81 MG ECTAB PO SCH (09:04)
[2020-06-20] MEDS: ATORVASTATIN 40 MG TAB PO SCH (09:04)
--- NOTE | 2020-06-20 09:51 | Discharge Summary ---
Date of Service June 20, 2020 Admission HPI Per Admitting Provider History obtained from patient and records. Medical history significant for HTN, PAD as per records, hyperlipidemia as per records, colon cancer status post surgery/chemoradiation, prostate cancer status post surgery/hormonal therapy, CRI (baseline creatinine 1.4), peripheral neuropathy as per records, past tobacco abuse. Last confinement 2012 under Orthopedics service for left hand surgery. 2 weeks ago, patient noted visual disturbance on his right eye with transient tolerable headache symptoms. Patient seen glazed images. No recent head/neck trauma. No arm and leg weakness, no slurred speech. No chest pain, no S OB. Patient saw an [employer] from [facility] in [place]. Diagnosis unknown to patient but patient was asked to return after 2 weeks. Persistent visual disturbance without headache symptoms on follow-up at [facility]'s clinic today. On examination, patient was told he had trouble seeing on sides of both eyes. Patient sent to the ER for evaluation of possible stroke. Aspirin given at the ER for possible CVA. 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 Hypertension Discharge Exam Constitutional WD/WN, vitals as above Eyes PERRL, conjunctivae normal, anicteric sclerae EOM intact bilaterally ENMT external ear and nose normal, oropharynx normal Neck trachea midline, no thyromegaly Respiratory normal respiratory effort, lungs clear to auscultation Cardiovascular Rate/Rhythm: regular rate and regular rhythm Gastrointestinal (Abdomen) normal bowel sounds, soft, nontender, no hepatosplenomegaly Musculoskeletal Head/Neck/Chest: normocephalic and head atraumatic Neurologic PERRL, EOMI, accommodation nl, no face palsy, no dysarthria CN's II-XI intact bilaterally and moves all extremities Psychiatric A+Ox3, euthymic affect Discharge Data Allergies Allergy/AdvReac Type Severity Reaction Status Date / Time No Known Allergies Allergy Unknown Verified 06/18/20 22:53 Consultations 06/18/20 21:51 ED Decision to Admit Stat 06/18/20 23:44 Consult Health Information Management Routine 06/19/20 02:27 Consult Neurology Routine Ordered Studies 06/18/20 19:19 CT angio head w con Stat CT angio neck with con Stat CT head/brain wo con Stat 06/18/20 21:15 MR brain wo con Urgent Hospital Course (1) Hemianopsia: Hemianopsia, 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 No evidence of intracranial mass 2. No evidence of acute or subacute infarction 3. Evidence for areas of chronic infarction involving the left occipital lobe and left superior cerebellar hemisphere 4. 1 cm cystic lesion within the right nasopharynx -transthoracic echocardiogram 60-65% no Atrial Septal Defect noted -evaluated by neurology consult on 06/19/2020 "Norris is a 84 year old male with a PMH HTN, PAD, HLD, colon cancer s/p s urgery chemo radiation, prostrate CA post surgery hormonal therapy, CKD III, peripheral neuropathy, previous tobacco abuse. About 2 months ago he started having some "floaters" that were obscuring his vision but would come and go. then about 2 weeks ago he had difficulty with his right eye and some transient headaches. He saw [facility] in [place] and his eye doctor told him he shouldn't drive because he lost vision in the periphery bilaterally but he is only noticing it on the right. He was asked to return in 2 weeks and that is when the eye doctor told him there was vision loss both right and left peripheral vision. His daughter is a retired nurse and decided to bring him to the ED. He states he has been walking to the bathroom and is not having any other issues other than the right sided vision loss. he was not on aspirin prior to this event. denies headache, CP, SOB, abdominal pain, one sided weakness, numbness tingling, N V." -hospitalist Dr. Ortiz spoke with neurology team and that likely the visual problem of right eye may have been from the chronic stroke -06/20/2020 exam Patient denies any headache or dizziness or motor deficits. He speaks clearly and does not have any slurred speech. Patient reports that he has been ambulating independently without any other and also denies any balance problems. Patient describes his right eye visual symptoms are more like floats. His eye movements tract normally. His pupils are equal and reactive to light. Patient breathes comfortably on room air. No acute shortness of breath when examined at rest. Patient denies acute pain. Patient denies other symptoms on review of systems -discharge on 06/20/2020 Discussed with patient and his daughter Nisreen Cassidy ([phone]) that patient should not be driving at this time as per neurology recommendations Patient should follow up with ophthalmology clinic Patient should follow up with primary care doctor. No acute telemetry events in the hospital and patient has been normal sinus rhythm - but neurology recommends that patient is recommended to be on ZIO patch as outpatient. 07/04/2020 8:50 AM Provider Dafne Hernandez DO Department Internal Medicine [facility] Patient should follow up with neurology clinic [address] [address]. 07/17/2020 11:20 AM Provider Juliann Lake PA-C Department Neurology [facility] Discharge pharmacy [facility] [address] [place] [address]. Patient discharge medication of aspirin 81 mg daily and atorvastatin 40 mg daily. 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 Hypertension Condition on Discharge: Good Activity: Per Instructions section Bathing: No limitations Exercise/Sports: As tolerated Driving/Machine Use: avoid driving Weightbearing: Full weightbearing Non-emergency contact: Primary Care Provider and Neurologist Call non-emergency contact if: you have any medication questions Follow-up/Referrals: Dafne Hernandez DO [Primary Care Provider] - (Date & Time 06/22/2020 11:20 AM Provider Tico uHnter MD Department Internal Medicine [facility] ) Diet: Heart Healthy Addtl Attending Provider Instructions: Discussed with patient and his daughter Nisreen Cassidy ([phone]) that patient should not be driving at this time as per neurology recommendations Patient should follow up with ophthalmology clinic Patient should follow up with primary care doctor. No acute telemetry events in the hospital and patient has been normal sinus rhythm - but neurology recommends that patient is recommended to be on ZIO patch as outpatient. 07/04/2020 8:50 AM Provider Dafne Hernandez DO Department Internal Medicine [facility] Patient should follow up with neurology clinic [place] [address] [place] [address]. 07/17/2020 11:20 AM Provider Juliann Lake PA-C Department Neurology [facility] Discharge pharmacy [facility] [address] [place] [address]. Patient discharge medication of aspirin 81 mg daily and atorvastatin 40 mg daily. Patient to continue home dose amlodipine of 2.5 mg daily Addtl Visual Specialist Provider Instructions: Brain MRI 06/18/2020 1. No evidence of intracranial mass 2. No evidence of acute or subacute infarction 3. Evidence for areas of chronic infarction involving the left occipital lobe and left superior cerebellar hemisphere 4. 1 cm cystic lesion within the right nasopharynx CTA head/neck unremarkable transthoracic echocardiogram 60-65% no Atrial Septal Defect noted Risk Factors for Stroke: You can reduce your chances of stroke by working with your medical provider to adopt a healthy lifestyle. Some specific ways to lower your chance of stroke are: * If you are a smoker, now is the time to stop smoking cigarettes * If you are diabetic, improve the control of your blood sugars * Avoid excessive amounts of alcohol * Control high blood pressure * Lose weight if you are overweight * Be sure to lead an active lifestyle * Eat a healthy diet low in salt, cholesterol and fat You should know about other risk factors for stroke that you are unable to control. These include: * Age 55 years or older * Male gender * Certain racial groups: , or / * Family History of Stroke, Mini stroke or Heart Attack * Sickle Cell Disease Follow Up: It is important for you to keep your follow up appointments with your medical provider. Who to Call and When: Medical Emergencies: Call 911 immediately if you experience any of the following warning signs and symptoms of Stroke: * Sudden numbness or weakness of the face, arm or leg, especially on one side of the body * Sudden confusion, trouble speaking or understanding * Sudden trouble seeing in one or both eyes * Sudden trouble walking, dizziness, loss of balance or coordination * Sudden severe headache with no cause Do not delay calling 911 if you experience any warning signs or symptoms of a stroke. Delay in seeking medical attention may affect what treatments can be given to you. . Pending Studies at Discharge: No Stand-Alone Forms: My [facility], Smoking Cessation Medications and DC Order Prescriptions: New atorvastatin 40 mg Tablet 40 mg PO QAM 30 Days Qty: 30 RF: 0 aspirin 81 mg tablet,chewable 81 mg PO QAM 30 Days Qty: 30 RF: 0 Continued amlodipine 2.5 mg tablet 2.5 mg PO DAILY RF: 0 Discharge Orders: Discharge Order (Routine); Ordered 06/20/20 Ordered By: Landon Ortiz Admission Data Admit Date/Time: 06/18/20 23:35 Attending Provider: Landon Ortiz Admit Provider: Sandro Winters Primary Care Provider: Dafne Hernandez Other Providers: Sandro Winters ; Juliann Lake ; Chang José ; Juliann Lugo ; Mateo Benjamin Other Interventions: Discharge Summary Assessment (RN) Last Done: 06/20/20 09:07
== END 2020-06-20 12:30 | disposition home or self-care (01) ==
LOC: ED 17:59 → 2W 17:59 → SUATTDRO 23:35 → 2W 06-19 02:08